=== PATIENT | female | born 1965 | race Caucasian/White ===

== ENCOUNTER 2020-05-26 06:55 | Emergency (ER) | payer BC ==
--- OUTSIDE RECORDS SUMMARY | 2020-05-26 06:58 | XMS REPORT | Continuity of Care Document ---
:1965 Author Organization [facility] t Address [address] [place] [address] Dr. Simmons [address] [place] [id number] Care Team Providers Name Role Phone FINESSE Attending Clinician Unavailable Problems This patient has no known problems. Allergies, Adverse Reactions, Alerts This patient has no known allergies or adverse reactions. Medications This patient has no known medications. Procedures This patient has no known procedures. Encounters Start End Encounter Admission Attending Care Care Encounter Source Date/Time Date/Time Type Type Clinicians Facility Department ID 2020-04-23 2020-04-23 Outpatient [facility] [id number] 00:00:00 00:00:00 [facility] [address] 2019-09-20 2019-09-20 Emergency E [facility] [id number] [facility] 07:29:00 07:29:00 Results This patient has no known results.
[2020-05-26 08:32] LABS: Absolute Lymphocytes (CBC) 2.9 K/uL (0.7-4.9); Basophils % 0.7 % (0-1.3); Hematocrit 37.9 % (36.0-45.0); Lymphocytes % 35.4 % (15.3-44.8); MPV 7.8 fL (7.6-11.3)
--- NOTE | 2020-05-26 09:09 | RAD REPORT ---
EXAM DESCRIPTION: RAD - Chest Single View - 05/26/2020 8:21 am CLINICAL HISTORY: Chest pain;Palpitations Chest pain. COMPARISON: No comparisons FINDINGS: Portable technique limits examination quality. The lungs are grossly clear. The heart is normal in size. No displaced fractures. IMPRESSION: No acute intrathoracic process suspected.
[2020-05-26 10:47] LABS: BUN Blood Urea Nitrogen 12 mg/dL (7-18); Bicarbonate 28 mmol/L (21-32); Glucose Level 94 mg/dL (74-106); Magnesium 1.9 mg/dL (1.8-2.4); NT PRO-BNP 8 pg/mL (<125); Potassium 4.2 mmol/L (3.5-5.1); Sodium Level 140 mmol/L (136-145); Troponin (Emerg Dept Use Only) < 0.02 ng/mL (0.0-0.045)
--- NOTE | 2020-05-26 10:59 | ER ---
Nurse's Notes [facility] Name: Jody Carrillo Age: 54 yrs Sex: Female : 1965 Arrival Date: 05/26/2020 Time: 06:57 Bed 15 Private MD: Diagnosis: Palpitations;Chest pain, unspecified Presentation: 05/26 07:20 Chief complaint: Patient states: "I've had chest pains for a while and they come and go aa5 and I don't know if it's anxiety". Pt also states "I am supposed to use a heart monitor from [facility] but I haven't gotten to it". Pt denies any other symptoms. Coronavirus screen: At this time, the client does not indicate any symptoms associated with coronavirus-19. 07:20 Method Of Arrival: Ambulatory aa5 07:20 Ebola Screen: No symptoms or risks identified at this time. Initial Sepsis Screen: Does aa5 the patient meet any 2 criteria? No. Patient's initial sepsis screen is negative. Does the patient have a suspected source of infection? No. Patient's initial sepsis screen is negative. Risk Assessment: Do you want to hurt yourself or someone else? Patient reports no desire to harm self or others. Onset of symptoms was 2020. 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 - Social history:: Smoking status: Patient denies any tobacco usage or history of. - Family history:: not pertinent. - Hospitalizations: : No recent hospitalization is reported. Screenin:15 Abuse screen: Denies threats or abuse. Denies injuries from another. Nutritional iw screening: No deficits noted. Tuberculosis screening: No symptoms or risk factors identified. Fall Risk IV access (20 points). Assessment: 08:14 General: Appears in no apparent distress. Behavior is calm, cooperative. Pain: Denies iw pain. Pain does not radiate. Pain: Complains of pain in chest Pain began Is intermittent. Neuro: Level of Consciousness is awake, alert, obeys commands, Oriented to person, place, time, situation, Moves all extremities. Full function. Cardiovascular: Reports chest pain. Respiratory: Respiratory effort is even, unlabored. Derm: Skin is intact, is healthy with good turgor. Musculoskeletal: Range of motion: intact in all extremities. 10:06 Reassessment: Patient appears in no apparent distress at this time. Patient and/or ca1 family updated on plan of care and expected duration. Pain level reassessed. Patient is alert, oriented x 3, equal unlabored respirations, skin warm/dry/pink. 10:54 Reassessment: Patient appears in no apparent distress at this time. Patient and/or ca1 family updated on plan of care and expected duration. Pain level reassessed. Patient is alert, oriented x 3, equal unlabored respirations, skin warm/dry/pink. Vital Signs: 07:20 BP 134 / 84; Pulse 86; Resp 16 S; Temp 97.8(O); Pulse Ox 100% on R/A; Weight 65.77 kg aa5 (R); Height 5 ft. 1 in. (154.94 cm) (R); Pain 0/10; 10:06 BP 162 / 84; Pulse 70; Resp 16 S; Pulse Ox 99% on R/A; ca1 10:54 BP 162 / 56; Pulse 70; Resp 18 S; Pulse Ox 100% on R/A; ca1 07:20 Body Mass Index 27.40 (65.77 kg, 154.94 cm) aa5 ED Course: 06:57 Patient arrived in ED. am4 07:25 Arm band placed on Patient placed in waiting room. EKG completed in triage. Results aa5 shown to MD. 07:33 Triage completed. aa5 07:48 Omi Blevins MD is Attending Physician. rn 08:13 Lena Adam RN is Primary Nurse. iw 08:15 No provider procedures requiring assistance completed. Initial lab(s) drawn, by me, iw sent to lab. Inserted saline lock: 20 gauge in right antecubital area, using aseptic technique. Blood collected. Patient maintains SpO2 saturation greater than 95% on room air. 08:21 XRAY Chest (1 view) In Process Unspecified. EDMS 10:06 Patient has correct armband on for positive identification. Bed in low position. Call ca1 light in reach. Side rails up X 1. ethics instructor on. Pulse ox on. NIBP on. 11:06 IV discontinued, intact, bleeding controlled, No redness/swelling at site. Pressure ca1 dressing applied. Administered Medications: No medications were administered Outcome: 10:58 Discharge ordered by . rn 11: Discharged to home ambulatory. ca1 11: Condition: stable 11: Discharge instructions given to patient, Instructed on discharge instructions, follow up and referral plans. Demonstrated understanding of instructions, follow-up care. 11:06 Patient left the ED. ca1 Signatures: Dispatcher [employer] EDLena Cruz, Omi Madison RN, MD MD rn Calderon, Audri, RN RN aa5 Salma Martinez RN RN Noreen Real
--- NOTE | 2020-05-26 10:59 | EDPHYS ---
Physician Documentation [facility] Name: Jody Carrillo Age: 54 yrs Sex: Female : 1965 Arrival Date: 05/26/2020 Time: 06:57 Bed 15 Private MD: ED Physician Omi Blevins HPI: 05/26 08:01 This 54 yrs old Female presents to ER via Ambulatory with complaints of Chest rn Pain. 08:01 This 54 yrs old Female presents to ER via Ambulatory with complaints of Chest rn Pain, palpitations. 08:01 The patient or guardian reports chest pain that is located primarily in the anterior rn chest wall, left. Onset: this morning. The pain radiates to left neck. Associated signs and symptoms: Pertinent positives: palpitations, Pertinent negatives: abdominal pain, cough, diaphoresis, dizziness, headache, shortness of breath, syncope, vomiting. The chest pain is described as aching. Duration: The patient or guardian reports multiple episodes, that are intermittent. Modifying factors: The symptoms are alleviated by nothing. the symptoms are aggravated by nothing. Severity of pain: At its worst the pain was very mild in the emergency department the pain has resolved. The patient has experienced similar episodes in the past. Reports months of episodic palpitations and chest pain, negative stress test 1 year ago, told needed holter monitor but hasn't gotten it yet, woke up with heart racing and left sided chest pain. Now resolved. Reports lasts for minutes then goes away. No fever/sob, does not feel ill. . 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 - Social history:: Smoking status: Patient denies any tobacco usage or history of. - Family history:: not pertinent. - Hospitalizations: : No recent hospitalization is reported. ROS: 08:01 Constitutional: Negative for fever, chills, and weight loss, Eyes: Negative for injury, rn pain, redness, and discharge, Neck: Negative for injury, pain, and swelling, Cardiovascular: Negative for edema Respiratory: Negative for shortness of breath, cough, wheezing, and pleuritic chest pain, Abdomen/GI: Negative for abdominal pain, nausea, vomiting, diarrhea, and constipation, Back: Negative for injury and pain, MS/Extremity: Negative for injury and deformity, Skin: Negative for injury, rash, and discoloration, Neuro: Negative for headache, weakness, numbness, tingling, and seizure. 08:04 All other systems are negative. rn Exam: 07:26 ECG was reviewed by the Attending Physician. rn 08:01 Constitutional: This is a well developed, well nourished patient who is awake, alert, rn and in no acute distress. Head/Face: Normocephalic, atraumatic. Eyes: Pupils equal round and reactive to light, extra-ocular motions intact. Lids and lashes normal. Conjunctiva and sclera are non-icteric and not injected. Cornea within normal limits. Periorbital areas with no swelling, redness, or edema. Neck: Trachea midline, no thyromegaly or masses palpated, and no cervical lymphadenopathy. Supple, full range of motion without nuchal rigidity, or vertebral point tenderness. No Meningismus. Cardiovascular: Regular rate and rhythm. No pulse deficits. Respiratory: No increased work of breathing, no retractions or nasal flaring. Abdomen/GI: soft, non-tender Skin: Warm, dry MS/ Extremity: Pulses equal, no cyanosis. Neurovascular intact. Full, normal range of motion. Equal circumference. Neuro: Awake and alert, GCS 15 Vital Signs: 07:20 BP 134 / 84; Pulse 86; Resp 16 S; Temp 97.8(O); Pulse Ox 100% on R/A; Weight 65.77 kg aa5 (R); Height 5 ft. 1 in. (154.94 cm) (R); Pain 0/10; 10:06 BP 162 / 84; Pulse 70; Resp 16 S; Pulse Ox 99% on R/A; ca1 10:54 BP 162 / 56; Pulse 70; Resp 18 S; Pulse Ox 100% on R/A; ca1 07:20 Body Mass Index 27.40 (65.77 kg, 154.94 cm) aa5 MDM: 07:48 Patient medically screened. rn 10:55 Differential diagnosis: acute pericarditis, anxiety, coronary artery disease rn costochondritis, esophagitis, pericarditis, pleurisy, pneumothorax, arrhythmia. Data reviewed: vital signs, nurses notes, lab test result(s), EKG, radiologic studies, plain films, and as a result, I will discharge patient. Counseling: I had a detailed discussion with the patient and/or guardian regarding: the historical points, exam findings, and any diagnostic results supporting the discharge/admit diagnosis, lab results, radiology results, the need for outpatient follow up, to return to the emergency department if symptoms worsen or persist or if there are any questions or concerns that arise at home. Response to treatment: the patient's symptoms have resolved after treatment, and as a result, I will discharge patient. Special discussion: I discussed with the patient/guardian in detail that at this point there is no indication for admission to the hospital. It is understood, however, that if the symptoms persist or worsen the patient needs to return immediately for re-evaluation. Based on the history and exam findings, there is no indication for further emergent testing or inpatient evaluation. I discussed with the patient/guardian the need to see the clinical care leader for further evaluation of the symptoms. ED course: Pt symptoms have resolved, no acute findings in bloodwork, no arrythmia on monitor or ecg, recommend cardiology f/u for holter and return precautions. neg stress 1 year ago.. 05/26 08:00 Order name: Basic Metabolic Panel rn 05/26 08:00 Order name: CBC with Diff rn 05/26 08:00 Order name: Magnesium rn 05/26 08:00 Order name: NT PRO-BNP rn 05/26 08:00 Order name: Troponin (emerg Dept Use Only) rn 05/26 08:00 Order name: TSH rn 05/26 08:00 Order name: XRAY Chest (1 view); Complete Time: 09:10 rn 05/26 08:00 Order name: T4 Free; Complete Time: 10:49 rn 05/26 08:01 Order name: Basic Metabolic Panel; Complete Time: 10:49 EDMS 05/26 08:01 Order name: CBC with Automated Diff; Complete Time: 08:37 EDMS 05/26 08:01 Order name: Magnesium; Complete Time: 10:49 EDMS 05/26 08:01 Order name: NT PRO-BNP; Complete Time: 10:49 EDMS 05/26 08:01 Order name: Troponin (Emerg Dept Use Only); Complete Time: 10:49 EDKY 05/26 08:01 Order name: Thyroid Stimulating Hormone; Complete Time: : [facility] 05/26 08:00 Order name: EKG; Complete Time: 08: 05/26 08:00 Order name: Cardiac monitoring; Complete Time: 08: rn 05/26 08:00 Order name: EKG - Nurse/Tech; Complete Time: : rn 05/26 08:00 Order name: IV Saline Lock; Complete Time: 08: rn 05/26 08:00 Order name: Labs collected and sent; Complete Time: : rn 05/26 08:00 Order name: O2 Per Protocol; Complete Time: rn 05/26 08:00 Order name: O2 Sat Monitoring; Complete Time: : rn EC:26 Rate is 86 beats/min. Rhythm is regular. QRS [place] is Normal. [place] interval is normal. QRS rn interval is normal. QT interval is normal. No Q waves. T waves are Normal. No ST changes noted. Clinical impression: NSR, Low voltage, no ischemia. Interpreted by me. Reviewed by me. Administered Medications: No medications were administered Disposition: 05/26/20 10:58 Discharged to Home. Impression: Palpitations, Chest pain, unspecified. - Condition is Stable. - Discharge Instructions: Nonspecific Chest Pain, Palpitations. - Medication Reconciliation Form, Thank You Letter, Antibiotic Education, Prescription Opioid Use form. - Follow up: Private Physician; When: As needed; Reason: Recheck today's complaints, Re-evaluation by your physician. - Problem is an ongoing problem. - Symptoms have improved. Signatures: Dispatcher [employer] EDMS Omi Blevins MD MD rn Calderon, Audri RN RN aa5 Salma Martinez RN RN ca1 Corrections: (The following items were deleted from the chart) 08:04 08:01 Constitutional: Negative for fever, chills, and weight loss, Eyes: Negative for rn injury, pain, redness, and discharge, Neck: Negative for injury, pain, and swelling, Cardiovascular: Negative for edema Respiratory: Negative for shortness of breath, cough, wheezing, and pleuritic chest pain, Abdomen/GI: Negative for abdominal pain, nausea, vomiting, diarrhea, and constipation, Back: Negative for injury and pain, MS/Extremity: Negative for injury and deformity, Skin: Negative for injury, rash, and discoloration, Neuro: Negative for headache, weakness, numbness, tingling, and seizure, rn 11:06 10:58 05/26/2020 10:58 Discharged to Home. Impression: Palpitations; Chest pain, ca1 unspecified. Condition is Stable. Forms are Medication Reconciliation Form, Thank You Letter, Antibiotic Education, Prescription Opioid Use. Follow up: Private Physician; When: As needed; Reason: Recheck today's complaints, Re-evaluation by your physician. Problem is an ongoing problem. Symptoms have improved. rn
[2020-05-26 20:36] VITALS: TEMP 97.8
[2020-05-26 20:39] VITALS: BP 162/56; O2SAT 100
--- NOTE | 2020-05-27 05:14 | EKG ---
Test Date: 2020-05-26 Test Time: 07:20:32 Outlet Manager: KRISS MEASUREMENT RESULTS: Intervals: Rate: 86 NC: 146 QRSD: 62 QT: 354 QTc: 423 Clements: P: 45 NC: 146 QRS: 19 T: 52 INTERPRETIVE STATEMENTS: Normal sinus rhythm Low voltage QRS Septal infarct, age undetermined Abnormal ECG No previous ECG available for comparison Electronically Signed On 05-27-20 05:11:27 PREMIUM NOTE INTEREST CALCULATOR CLERK by Apollo Mac
== END 2020-05-26 11:06 | disposition home or self-care (01) ==
LOC: ER 06:55
DX: R07.9 Chest pain, unspecified (principal); R00.2 Palpitations
CPT/HCPCS: 36415; 71045; 80048; 83735; 83880; 84439; 84443; 84484; 85025; 93005; 99285

== ENCOUNTER 2020-06-25 17:39 | Emergency (ER) | payer BC ==
--- OUTSIDE RECORDS SUMMARY | 2020-06-25 17:42 | XMS REPORT | Continuity of Care Document ---
:1965 Author Organization [facility] t Address [address] [place] [address] Care Team Providers Name Role Phone Zach JIMENEZ L. Primary Care Physician Arturo Macdonald Attending Clinician [phone] Zahc JIMENEZ L. Attending Clinician Payers Payer Name Policy Type Policy Effective Date Expiration Date Sour ce Number BCBSBCBS CHOICE [id number] 2019 [facility] PPO/FEDERAL 00:00:00 [facility] EMPL [id number] 2019-[facility] tPPO Problems This patient has no known problems. Allergies, Adverse Reactions, Alerts Allergy Allergy Status Severity Reaction(s) Onset Inactive Treating Comm ents Source Name Type Date Date Clinician Penicill DA [facility] U [facility] [place] sulfamet DA [facility] hoxazole [facility] [place] trimetho DA Active U [facility] prim [facility] [place] ciproflo DA Active [facility] xacin [facility] [place] levoflox DA Active U 2020- [facility] acin [facility] [place] Social History Social Habit Start Date Stop Date Quantity Comments Source Sex Ass[birth year] At [birth year] Junior Salas ethodist 00:00:00 00:00:00 Medications This patient has no known medications. Procedures Procedure Date / Time Performed Performing Clinician Sourc e COVID-19 QUALITATIVE PCR 2020-04-23 14:52:00 Tressa Serrano Plan of Care Planned Activity Planned Date Details Comments Source Future Scheduled 2020-10-17 INFLUENZA VACCINE [place] [facility] 00:00:00 [code = INFLUENZA VACCINE] Future Scheduled 2015-06-11 BREAST CANCER [facility] 00:00:00 SCREENING [code = BREAST CANCER SCREENING] Future Scheduled 2015-06-11 COLONOSCOPY SCREENING [place] [facility] 00:00:00 [code = COLONOSCOPY SCREENING] Future Scheduled 2015-06-11 SHINGLES VACCINES [place] [facility] 00:00:00 (#1) [code = SHINGLES VACCINES (#1)] Future Scheduled 1986 Screening for [facility] Test 00:00:00 malignant neoplasm of cervix (procedure) [code = 675731895] Future Scheduled 1983-06-11 Hepatitis C screening [place] [facility] 00:00:00 (procedure) [code = 972031710] Future Scheduled 1981 COVID-19 VACCINE (1) [facility] Test 00:00:00 [code = COVID-19 VACCINE (1)] Encounters Start End Encounter Admission Attending Care Care Encounter Source Date/Time Date/Time Type Type Clinicians Facility Department ID 2020-04-23 2020-04-23 Outpatient ZACH Wai [facility] [id number] [facility] 00:00:00 00:00:00 TRESSA Alvarez [facility] 2019-09-20 2019-09-20 Emergency E [facility] 7500 [facility] 07:29:00 07:29:00 Results Test Description Test Time Test Comments Results Result Comments Source COLON SEGMENT RESEC.NOT TUMOR 2020-06-20 13:02:00 Test Item Value Reference Range Interpretation Comme nts COLON RUN DATE: SEGMENT 06/21/20 [facility] PAGE 1 RUN TIME: 1054 RESEC.NOT Specimen Inquiry RUN USER: INTERFACE TUMOR (test code PATIENT: = COLONR) [facility]IALBERTO [facility] [id number] AGE/SX: 55/ F ROOM: [facility] RE06/14/20REG DR: Clayton Lea MD : 65 BED: A DIS: 06/16/20 STATUS: DIS IN TLOC: SPEC #: [id number] RECD: STATUS: ABHINAV NANCY #: [id number] SHERON: 06/14/20- SUBM DR: Clayton Lea MD ENTERED: 06/15/20307 SP TYPE: COLONR OTHR DR: Margarito Trevizo MD ORDERED: LEVEL V SURGICA CODES: E10188 - COLON, NOS COPIES TO: Clayton Lea MD [id number] [place] [address] Margarito Castaneda MD [address] [place] [address] [phone] PROCEDURES: LEVEL V SURGICA (Incomplete) TISSUES: COLON, NOS - SIGMOID COLON AND UPPER RE CTUM CLINICAL HISTORY 55 year old, diverticulitis (aimee) FINAL DIAGNOSIS Designate d "sigmoid and upper rectum", resection: - 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 The specimen consists of a 21 x 3 cm portion of bowel with attached pericolonic fat. The fat is torn and disrupted. The serosa is casillas-pink with focal areas of disruption. The specimen is opened to reveal casillas-pink mucosa with folds. An area of stricture is identified. A 0.3 cm possible polyp is identified. Multiple divert iculum are identified. Some of the diverticulum are filled with fecal material. Also recei wu in the same container is a 10 x 9 x 3 cm aggregate of fragmented fatty tissue. The tissue is secti oned to reveal a casillas-yellow cut surface with focal pink-red discoloration. Also received in the same container is a 1.5 cm portion of casillas-pink mucosa. Also received in the same container is a 2 .0 cm annular portion of mucosa. [employer] sections are submitted as follows: A1 - possible p olyp, A2 and A3 - diverticula, A4 - area of stricture, A5 - area of disruption, A6 - fatty tissu e with areas of discoloration, A7 - 1.5 cm portion of mucosa, A8 - annular portion of mucosa. stephen/aimee 06/15/20 MICROSCOPIC DESCRIPTION The specimen consists of a segment of colorectum. Numerous div erticula are present, some of which extend through the muscularis propria into the perirectal and pe ricolonic adipose tissue. Focal hyperplastic changes are present. An annular segment of mucosa and a separate fragment of mucosa is present which have no pathologic alterations. No atypia, dysplasia, granulomas o r malignancy is identified. pkg/wpd Signed Helena Linder 06/20/20 1302 END OF REPORT CHEMISTRY 7 [id number] 05:05:00 Test Item Value Reference Range Interpretation Comments SODIUM (test code = NA) 145 mEq/L 135-145 N POTASSIUM (test code = K) 3.5 mEq/L 3.5-5.0 N CHLORIDE (test code = CL) 108 mEq/L 100-115 N CARBON DIOXIDE (test code = CO2) 29 mEq/L 22-31 N ANION GAP (test code = GAP) 11.30 10-20 N GLUCOSE (test code = GLU) 105 mg/dL 65-110 N BLOOD UREA NITROGEN (test code = 4 mg/dL 7-18 L BUN) GLOMERULAR FILTRATION RATE (test 87 ml/min >60 N code = GFR) CREATININE (test code = CREAT) 0.7 mg/dL 0.5-1.0 N CALCIUM (test code = CA) 8.3 mg/dL 8.4-10.2 L CBC W/AUTO [id number] 04:55:00 Test Item Value Reference Range Interpretation Comments WHITE BLOOD CELL (test code = WBC) 14.3 K/mm3 6.5-12.3 H RED BLOOD CELL (test code = RBC) 3.59 M/mm3 3.51-4.69 N HEMOGLOBIN (test code = HGB) 10.9 g/dL 10.1-13.8 N HEMATOCRIT (test code = HCT) 34.6 % 32.5-41.8 N MEAN CELL VOLUME (test code = MCV) 96.4 fL 84.6-96.6 N MEAN CELL HGB (test code = MCH) 30.4 pg 27.3-33.9 N MEAN CELL HGB CONCETRATION (test 31.5 gm/dL 32.0-34.2 L code = MCHC) RED CELL DISTRIBUTION WIDTH (test 13.1 % 12.2-16.3 N code = RDW) PLATELET COUNT (test code = PLT) 207 K/mm3 134-363 N MEAN PLATELET VOLUME (test code = 9.6 fL 9.2-12.7 N MPV) NEUTROPHIL % (test code = NT%) 75.5 % 57.9-77.3 N LYMPHOCYTE % (test code = LY%) 18.6 % 14.5-29.7 N MONOCYTE % (test code = MO%) 4.7 % 3.6-10.2 N EOSINOPHIL % (test code = EO%) 0.2 % 0.0-3.0 N BASOPHIL % (test code = BA%) 0.2 % 0.1-0.9 N NEUTROPHIL # (test code = NT#) 10.8 K/mm3 LYMPHOCYTE # (test code = LY#) 2.7 K/mm3 MONOCYTE # (test code = MO#) 0.7 K/mm3 EOSINOPHIL # (test code = EO#) 0.03 K/mm3 BASOPHIL # (test code = BA#) 0.0 K/mm3 RBC MORPHOLOGY REQUIRED (test code NORMAL NORMAL = RBCM) PLATELET MORPHOLOGY REQUIRED (test NORMAL NORMAL code = PLTMR) CHEMISTRY 7 [id number] 06:01:00 Test Item Value Reference Range Interpretation Comments SODIUM (test code = NA) 139 mEq/L 135-145 N POTASSIUM (test code = K) 3.8 mEq/L 3.5-5.0 N CHLORIDE (test code = CL) 103 mEq/L 100-115 N CARBON DIOXIDE (test code = CO2) 26 mEq/L 22-31 N ANION GAP (test code = GAP) 14.20 10-20 N GLUCOSE (test code = GLU) 130 mg/dL 65-110 H BLOOD UREA NITROGEN (test code = 8 mg/dL 7-18 N BUN) GLOMERULAR FILTRATION RATE (test 74 ml/min >60 N code = GFR) CREATININE (test code = CREAT) 0.8 mg/dL 0.5-1.0 N CALCIUM (test code = CA) 8.4 mg/dL 8.4-10.2 N CBC W/AUTO [id number] 05:45:00 Test Item Value Reference Range Interpretation Comments WHITE BLOOD CELL (test code = WBC) 19.7 K/mm3 6.5-12.3 H RED BLOOD CELL (test code = RBC) 3.88 M/mm3 3.51-4.69 N HEMOGLOBIN (test code = HGB) 11.8 g/dL 10.1-13.8 N HEMATOCRIT (test code = HCT) 36.7 % 32.5-41.8 N MEAN CELL VOLUME (test code = MCV) 94.6 fL 84.6-96.6 N MEAN CELL HGB (test code = MCH) 30.4 pg 27.3-33.9 N MEAN CELL HGB CONCETRATION (test 32.2 gm/dL 32.0-34.2 N code = MCHC) RED CELL DISTRIBUTION WIDTH (test 12.9 % 12.2-16.3 N code = RDW) PLATELET COUNT (test code = PLT) 253 K/mm3 134-363 N MEAN PLATELET VOLUME (test code = 10.0 fL 9.2-12.7 N MPV) NEUTROPHIL % (test code = NT%) 87.0 % 57.9-77.3 H LYMPHOCYTE % (test code = LY%) 8.5 % 14.5-29.7 L MONOCYTE % (test code = MO%) 3.7 % 3.6-10.2 N EOSINOPHIL % (test code = EO%) 0.0 % 0.0-3.0 N BASOPHIL % (test code = BA%) 0.1 % 0.1-0.9 N NEUTROPHIL # (test code = NT#) 17.1 K/mm3 LYMPHOCYTE # (test code = LY#) 1.7 K/mm3 MONOCYTE # (test code = MO#) 0.7 K/mm3 EOSINOPHIL # (test code = EO#) 0 K/mm3 BASOPHIL # (test code = BA#) 0.0 K/mm3 RBC MORPHOLOGY REQUIRED (test code NORMAL NORMAL = RBCM) PLATELET MORPHOLOGY REQUIRED (test NORMAL NORMAL code = PLTMR) COVID 19 Asymptomatic IH [id number] 22:26:00 Test Item Value Reference Range Interpretation Comments COVID 19 NEGATIVE NEGATIVE This test has b een Asymptomatic IH AG authorize d only for the (test code = detection ofpro teins from COVNONPUIAG) SARS-CoV-2, not for any other viruses orpathogens. N egative results should be treated as presumptive andconfirmed wi th a molecular assay , if necessary for patientmanageme nt. Negative result s do not rule out COVID- 19 andshould not b e used as the sole basis for treatment orpat ient management deci sions, including infec tion controldecision s. Negative result s should be considered i n thecontext of a patient's recent exposure s, history and thepresence of clinical signs and symptoms consis tent withCOVID-19. T his test has not been FD A cleared or approved; th e test hasbeen authori zed by FDA under an Emerge ncy Use Authorization(E UA) for use by laborato shanique certified under the CLIA thatmeet the re quirements to perform mode rate, high or waivedcomple xity tests. This nikita t is authorized for use at thePoint of Car e (POC), i.e., in patien t care settingsoperati ng under a CLIA Certificat e of Waiver, Certifi sabine ofCompliance, o r Certificate of Accreditation. This test is only authori zed for the duration of thedeclaration that circumstances e xist justifying theauthorizatio n of emergency use o f in vitro diagnostic test sfor detection and/o r diagnosis of CO VID-19 under Najgdxe55 4(b)(1) of the Act, 21 U.S .C. 360bbb-3(b)(1), unless theauthorizatio n is terminated or r evoked sooner. UR HCG [id number] 17:22:00 Test Item Value Reference Range Interpretation Comments UR HCG QUAL (test NEGATIVE 1. Very di lute urine code = HCGQLU) specimens, as indicated by a lowspecific g ravity, may not contain rep resentative levels ofhCG. 2 . False negative result s may occur when the levels of hCGare below the sensi tivity level of the test. If is still suspec chelsea, a first morningurine sp ecimen should be colle cted 48 hours later and tested. COMPREHENSIVE METABOLIC [id number] 17:11:00 Test Item Value Reference Range Interpretation Comments SODIUM (test code = NA) 141 mEq/L 135-145 N POTASSIUM (test code = K) 4.1 mEq/L 3.5-5.0 N CHLORIDE (test code = CL) 102 mEq/L 100-115 N CARBON DIOXIDE (test code = CO2) 29 mEq/L 22-31 N ANION GAP (test code = GAP) 14.60 10-20 N GLUCOSE (test code = GLU) 91 mg/dL 65-110 N BLOOD UREA NITROGEN (test code = 17 mg/dL 7-18 N BUN) GLOMERULAR FILTRATION RATE (test 104 ml/min >60 N code = GFR) CREATININE (test code = CREAT) 0.6 mg/dL 0.5-1.0 N TOTAL PROTEIN (test code = PROT) 7.2 gm/dL 6.3-8.2 N ALBUMIN (test code = ALB) 4.2 gm/dL 3.4-4.8 N CALCIUM (test code = CA) 9.4 mg/dL 8.4-10.2 N BILIRUBIN TOTAL (test code = BILT) 0.2 mg/dL 0.2-1.0 N SGOT/AST (test code = AST) 15 units/L 15-37 N SGPT/ALT (test code = ALT) 30 units/L 12-78 N ALKALINE PHOSPHATASE TOTAL (test 68 units/L 46-116 N code = ALKP) PROTHROMBIN [id number] 16:59:00 Test Item Value Reference Range Interpretation Comments PROTHROMBIN TIME PATIENT (test code 11.1 secs 10.4-12.4 N = PTP) THROMBOPLASTIN TIME [id number] 16:59:00 Test Item Value Reference Range Interpretation Comments THROMBOPLASTIN TIME PARTIAL (test 35.9 secs 22-38 N code = PTT) CBC W/AUTO [id number] 16:44:00 Test Item Value Reference Range Interpretation Comments WHITE BLOOD CELL (test code = WBC) 9.4 K/mm3 6.5-12.3 N RED BLOOD CELL (test code = RBC) 4.37 M/mm3 3.51-4.69 N HEMOGLOBIN (test code = HGB) 13.4 g/dL 10.1-13.8 N HEMATOCRIT (test code = HCT) 41.1 % 32.5-41.8 N MEAN CELL VOLUME (test code = MCV) 94.1 fL 84.6-96.6 N MEAN CELL HGB (test code = MCH) 30.7 pg 27.3-33.9 N MEAN CELL HGB CONCETRATION (test 32.6 gm/dL 32.0-34.2 N code = MCHC) RED CELL DISTRIBUTION WIDTH (test 12.9 % 12.2-16.3 N code = RDW) PLATELET COUNT (test code = PLT) 289 K/mm3 134-363 N MEAN PLATELET VOLUME (test code = 10.2 fL 9.2-12.7 N MPV) NEUTROPHIL % (test code = NT%) 51.2 % 57.9-77.3 L LYMPHOCYTE % (test code = LY%) 39.4 % 14.5-29.7 H MONOCYTE % (test code = MO%) 6.9 % 3.6-10.2 N EOSINOPHIL % (test code = EO%) 2.0 % 0.0-3.0 N BASOPHIL % (test code = BA%) 0.3 % 0.1-0.9 N NEUTROPHIL # (test code = NT#) 4.8 K/mm3 LYMPHOCYTE # (test code = LY#) 3.7 K/mm3 MONOCYTE # (test code = MO#) 0.7 K/mm3 EOSINOPHIL # (test code = EO#) 0.19 K/mm3 BASOPHIL # (test code = BA#) 0.0 K/mm3 RBC MORPHOLOGY REQUIRED (test code NORMAL NORMAL = RBCM) PLATELET MORPHOLOGY REQUIRED (test NORMAL NORMAL code = PLTMR) COVID-19 qualitative [id number] 23:12:45 Test Item Value Reference Range Interpretation Comments Interpretation (test Negative results do code = 9632955) not preclude 2019-nCoV infection and should not be used as the sole basis for treatment or other patient management decisions. Negative results must be combined with clinical observations, patient history, and epidemiological information. COVID-19 qualitative Not-Detected Not-Detected PCR result (test code = 78024-8) COVID-19 qualitative See link below for C ase Number: PCR (test code = PDF Lab Report [id number]) Junior Glover
[2020-06-25 18:28] LABS: Urine Blood Negative (Negative); Urine Glucose Negative (Negative); Urine Protein Negative (Negative); Urine Specific Gravity 1.025 (1.005-1.030); Urine pH 5.5 (5.0-7.0)
[2020-06-25 20:27] LABS: SARS-COV-2 RT PCR NEGATIVE (NEGATIVE)
[2020-06-25 20:54] LABS: Urine Blood Negative (Negative); Urine Glucose Negative (Negative); Urine Protein Negative (Negative); Urine Specific Gravity 1.025 (1.005-1.030)
[2020-06-25 21:05] LABS: Absolute Lymphocytes (CBC) 3.2 K/uL (0.7-4.9); Basophils % 0.4 % (0-1.3); Hematocrit 36.1 % (36.0-45.0); Lymphocytes % 32.8 % (15.3-44.8); RBC Red Blood Cell Count 4.09 M/uL (3.86-4.86)
[2020-06-25 21:19] LABS: BUN Blood Urea Nitrogen 10 mg/dL (7-18); Bicarbonate 31 mmol/L (21-32); Glucose Level 90 mg/dL (74-106); Potassium 3.9 mmol/L (3.5-5.1); Sodium Level 140 mmol/L (136-145)
--- NOTE | 2020-06-25 21:36 | RAD REPORT ---
EXAM DESCRIPTION: CTAbdomen Pelvis W Contrast - 06/25/2020 9:14 pm CLINICAL HISTORY: Abdominal pain. ABD PAIN COMPARISON: CT ABD PELVIS W CONTRAST dated 03/08/2013 TECHNIQUE: Biphasic CT imaging of the abdomen and pelvis was performed with 100 ml non-ionic IV cont rast. All CT scans are performed using dose optimization technique as appropriate and may include automated exposure control or mA/KV adjustment according to patient size. FINDINGS: The lung bases are clear. The liver, spleen, pancreas, adrenal glands and kidneys are within normal limits. No bowel obstruction, free air, free fluid or abscess. 5.0 x 4.0 cm cavity is seen adjacent to sigmoi d colon anastomosis. There is a small amount of fluid seen within the cavity. Mild inflammation is se en in the surrounding fat. The appendix is normal. No evidence of significant lymphadenopathy. No suspicious bony findings. IMPRESSION: Irregularly-shaped 5 x 4 cm cavity is seen adjacent to the sigmoid colon anastomosis. Th is suggests abscess or contained anastomotic leakage. The fat surrounding this collection is mildly i nflamed. Colonoscopy followup may be value for direct visualization of the region.
[2020-06-25] MEDS ORDERED: NA CHLORIDE 0.9% 1,000 ML ONE (23:12)
[2020-06-25] MEDS ORDERED: ERTAPENEM SODIUM 1 GM VIAL ONE (23:38)
[2020-06-25] MEDS ORDERED: NA CHLORIDE 0.9% 100 ML ONE (23:44)
--- NOTE | 2020-06-26 00:25 | EDPHYS ---
Physician Documentation [facility] Name: Jody Carrillo Age: 55 yrs Sex: Female : 1965 Arrival Date: 06/25/2020 Time: 17:40 Bed 19 Private MD: ED Physician Morales Ortega HPI: 06/25 19:52 This 55 yrs old Female presents to ER via Ambulatory with complaints of kb Fever, Abdominal Pain. 19:52 The patient reports fever, that was measured at 100 degrees Fahrenheit, with an kb emergency department temperature of 97.6 degrees Fahrenheit. Onset: The symptoms/episode began/occurred 12 day(s) ago. Modifying factors: there are no obvious modifying factors. Associated signs and symptoms: Pertinent positives: chills, myalgias, sore throat. Severity of symptoms: At their worst the symptoms were moderate in the emergency department the symptoms have improved moderately. The patient has not experienced similar symptoms in the past. The patient has been recently seen by a physician:. Pt reports she had a colon resection on June 13, 2020 due to diverticulitis by Dr Lea at [facility]. States she has had a fever since the surgery (12 days). Reports bodyaches, chills and malaise when she has a fever, but asymptomatic when the fever breaks. Has been taking tylenol and motrin for fever/pain. States she has started to develop a sore throat. Reports soreness to abd, but no pain. . Historical: - Allergies: 18:05 Bactrim; ss 18:05 Cipro; ss 18:05 Levaquin; ss 18:05 PENICILLINS; ss - PMHx: 18:05 diverticulosis; ss - PSHx: 18:05 colon resection; ss - Immunization history:: Adult Immunizations up to date. - Social history:: Smoking status: Patient denies any tobacco usage or history of. ROS: 20:40 Eyes: Negative for injury, pain, redness, and discharge, ENT: Negative for injury, mh7 pain, and discharge, Neck: Negative for injury, pain, and swelling, Cardiovascular: Negative for chest pain, palpitations, and edema, Respiratory: Negative for shortness of breath, cough, wheezing, and pleuritic chest pain. 20:40 Back: Negative for injury and pain, : Negative for injury, bleeding, discharge, and swelling, MS/Extremity: Negative for injury and deformity, Skin: Negative for injury, rash, and discoloration, Neuro: Negative for headache, weakness, numbness, tingling, and seizure, Psych: Negative for depression, anxiety, suicide ideation, homicidal ideation, and hallucinations, Allergy/Immunology: Negative for hives, rash, and allergies, Endocrine: Negative for neck swelling, polydipsia, polyuria, polyphagia, and marked weight changes, Hematologic/Lymphatic: Negative for swollen nodes, abnormal bleeding, and unusual bruising. 20:40 Abdomen/GI: Negative for nausea and vomiting, nausea, vomiting, and diarrhea, nausea, vomiting, diarrhea, constipation, abdominal distension, anorexia, dysphagia, hematemesis, black/tarry stool, rectal pain, rectal bleeding, bowel incontinence, flatulence. Exam: 20:40 Constitutional: This is a well developed, well nourished patient who is awake, alert, mh7 and in no acute distress. Head/Face: Normocephalic, atraumatic. Eyes: Pupils equal round and reactive to light, extra-ocular motions intact. Lids and lashes normal. Conjunctiva and sclera are non-icteric and not injected. Cornea within normal limits. Periorbital areas with no swelling, redness, or edema. ENT: Nares patent. No nasal discharge, no septal abnormalities noted. Tympanic membranes are normal and external auditory canals are clear. Oropharynx with no redness, swelling, or masses, exudates, or evidence of obstruction, uvula midline. Mucous membranes moist. Neck: Trachea midline, no thyromegaly or masses palpated, and no cervical lymphadenopathy. Supple, full range of motion without nuchal rigidity, or vertebral point tenderness. No Meningismus. Chest/axilla: Normal chest wall appearance and motion. Nontender with no deformity. No lesions are appreciated. Cardiovascular: Regular rate and rhythm with a normal S1 and S2. No gallops, murmurs, or rubs. Normal PMI, no JVD. No pulse deficits. Respiratory: Lungs have equal breath sounds bilaterally, clear to auscultation and percussion. No rales, rhonchi or wheezes noted. No increased work of breathing, no retractions or nasal flaring. 20:40 Back: No spinal tenderness. No costovertebral tenderness. Full range of motion. Skin: Warm, dry with normal turgor. Normal color with no rashes, no lesions, and no evidence of cellulitis. MS/ Extremity: Pulses equal, no cyanosis. Neurovascular intact. Full, normal range of motion. Neuro: Awake and alert, GCS 15, oriented to person, place, time, and situation. Cranial nerves II-XII grossly intact. Motor strength 5/5 in all extremities. Sensory grossly intact. Cerebellar exam normal. Normal gait. Psych: Awake, alert, with orientation to person, place and time. Behavior, mood, and affect are within normal limits. 20:40 Abdomen/GI: Inspection: scar(s), are noted in the epigastric area and suprapubic area, Bowel sounds: normal, in all quadrants, Palpation: abdomen is soft and non-tender, in all quadrants, Rectal exam: the exam is deferred, because of patient request, Indicators: McBurney's point is not tender, Rain's sign is negative, Rovsing's sign is negative, Obturator sign is negative, Psoas sign is negative, Liver: no appreciated palpable abnormalities, Hernia: not appreciated. Vital Signs: 18:03 BP 114 / 84; Pulse 99; Resp 14; Temp 97.6(TE); Pulse Ox 99% on R/A; Weight 64.86 kg; ss Height 5 ft. 1 in. (154.94 cm); Pain 1/10; 20:30 BP 128 / 63; Pulse 88; Resp 16; Pulse Ox 99% ; sf 21:30 BP 125 / 54; Pulse 87; Resp 16; Pulse Ox 100% ; sf 22:30 BP 109 / 69; Pulse 87; Resp 16; Pulse Ox 95% ; sf 23:00 BP 123 / 67; Pulse 81; Resp 16; Pulse Ox 100% ; sf 23:30 BP 128 / 72; Pulse 87; Resp 16; Pulse Ox 100% ; sf 06/26 00:00 BP 129 / 69; Pulse 91; Resp 16; Pulse Ox 99% ; sf 06/25 18:03 Body Mass Index 27.02 (64.86 kg, 154.94 cm) ss MDM: 06/25 18:08 Patient medically screened. kb 19:57 Data reviewed: vital signs, nurses notes. Data interpreted: Pulse oximetry: on room air kb is 99 %. Interpretation: normal. 06/26 00:19 Differential diagnosis: viral Infection, bacterial infection, Post operative infection. mh7 Counseling: I had a detailed discussion with the patient and/or guardian regarding: the historical points, exam findings, and any diagnostic results supporting the discharge/admit diagnosis, lab results, radiology results, the need for outpatient follow up, to return to the emergency department if symptoms worsen or persist or if there are any questions or concerns that arise at home. Response to treatment: the patient's symptoms have resolved after treatment, the patient's blood pressure is in an acceptable range, mental status has returned to baseline, the patient no longer shows bradycardia, the patient is not short of breath, the patient is not tachycardic, the patient's pain is gone, the patient's temperature has normalized. ED course: Discussed with patient's surgeon, Dr. Lea. He also discussed CT abdomen with radiologist. He determined no abscess or surgical anastomosis problem. He wants patient to receive a dose of antibiotics in the ED and follow up with appointment already scheduled on 06/28/20. Patient is agreeable with this plan.. 06/25 18:09 Order name: Flu kb 06/25 18:09 Order name: Strep; Complete Time: 21:48 kb 06/25 18:10 Order name: CBC with Diff; Complete Time: 21:48 kb 06/25 18:10 Order name: Basic Metabolic Panel; Complete Time: 21:48 kb 06/25 18:10 Order name: Blood Culture Adult (2) kb 06/25 18:10 Order name: Lactate; Complete Time: 21:48 kb 06/25 18:10 Order name: Procalcitonin; Complete Time: 22:11 kb 06/25 18:10 Order name: Influenza Screen (A [facility] 06/25 18:28 Order name: Urine Dipstick-Ancillary; Complete Time: 18:38 [facility] 06/25 19:51 Order name: CT Abd/Pelvis - IV Contrast Only; Complete Time: 21:48 kb 06/25 19:58 Order name: Throat Culture [facility] 06/25 20:27 Order name: SARS-COV-2 RT PCR; Complete Time: 21:48 [facility] 06/25 20:54 Order name: Urine Dipstick-Ancillary; Complete Time: 21:48 [facility] 06/25 18:10 Order name: Urine Dipstick-Ancillary (obtain specimen); Complete Time: 21:00 kb 06/25 18:10 Order name: IV Start; Complete Time: 21:00 kb Administered Medications: 06/25 22:56 Drug: NS 0.9% 1000 ml Route: IV; Rate: 1000 ml; Site: right antecubital; 23:34 Follow up: IV Status: Completed infusion; IV Intake: 1000ml sf 23:34 Drug: InvANZ (ertapenem) 1 grams Route: IVPB; Infused Over: 30 mins; Site: right sf antecubital; 06/26 00:10 Follow up: IV Status: Completed infusion; IV Intake: 100ml sf 00:28 Follow up: Response: No adverse reaction sf Disposition: 05:36 Co-signature as Attending Physician, Morales Ortega MD. mh7 Disposition: 06/26/20 00:24 Discharged to Home. Impression: Fever, subjective, Abdominal Pain, Post operative. - Condition is Stable. - Discharge Instructions: Abdominal Pain, Adult, [id number], Fever, Adult, [id number]. - Prescriptions for Flagyl 500 mg Oral Tablet - take 1 tablet by ORAL route every 8 hours for 10 days; 30 tablet. Keflex 500 mg Oral Capsule - take 1 capsule by ORAL route every 8 hours for 10 days; 30 capsule. - Medication Reconciliation Form, Thank You Letter, Antibiotic Education, Prescription Opioid Use form. - Follow up: Private Physician; When: 48 Hours; Reason: Worsening of condition, Recheck today's complaints, Continuance of care, Re-evaluation by your physician. - Problem is an ongoing problem. - Symptoms have improved. Signatures: Dispatcher [employer] [facility] Caron Corbett, VESSEL SLAGMAN-C VESSEL SLAGMAN-Germania Stephen RN RN ss Morales Ortega MD MD 7 Preet Jurado RN RN sf Corrections: (The following items were deleted from the chart) 06/25 19:29 18:10 CORONAVIRUS+ ordered. [facility] 06/26 00:54 00:24 06/26/2020 00:24 Discharged to Home. Impression: Fever, subjective; Abdominal sf Pain, Post operative. Condition is Stable. Forms are Medication Reconciliation Form, Thank You Letter, Antibiotic Education, Prescription Opioid Use. Follow up: Private Physician; When: 48 Hours; Reason: Worsening of condition, Recheck today's complaints, Continuance of care, Re-evaluation by your physician. Problem is an ongoing problem. Symptoms have improved. mh7
--- NOTE | 2020-06-26 00:25 | ER ---
Nurse's Notes [facility] Name: Jody Carrillo Age: 55 yrs Sex: Female : 1965 Arrival Date: 06/25/2020 Time: 17:40 Bed 19 [facility] MD: Diagnosis: Fever, subjective;Abdominal Pain, Post operative Presentation: 06/25 18:03 Chief complaint: Patient states: fever x 12 days. Pt states, "I had a colon resection ss on 06/[address] Kennedy told me to come in to the ED immediately.". Coronavirus screen: Client denies travel out of the [place] in the last 14 days. Ebola Screen: Patient denies exposure to infectious person. Patient denies travel to an Ebola-affected area in the 21 days before illness onset. Initial Sepsis Screen: Does the patient meet any 2 criteria? No. Patient's initial sepsis screen is negative. Does the patient have a suspected source of infection? No. Patient's initial sepsis screen is negative. Risk Assessment: Do you want to hurt yourself or someone else? Patient reports no desire to harm self or others. Onset of symptoms was June 15, 2020. 18:03 Method Of Arrival: Ambulatory ss 18:03 Acuity: ELIEZER 3 ss Historical: - Allergies: 18:05 Bactrim; ss 18:05 Cipro; ss 18:05 Levaquin; ss 18:05 PENICILLINS; ss - PMHx: 18:05 diverticulosis; ss - PSHx: 18:05 colon resection; ss - Immunization history:: Adult Immunizations up to date. - Social history:: Smoking status: Patient denies any tobacco usage or history of. Screenin:20 Abuse screen: Denies threats or abuse. Denies injuries from another. Nutritional sf screening: No deficits noted. Tuberculosis screening: No symptoms or risk factors identified. Never had TB. Possible symptoms: None Risk factors: None. Fall Risk None identified. No fall in past 12 months (0 pts). No secondary diagnosis (0 pts). IV access (20 points). Ambulatory Aid- None/Bed Rest/Nurse Assist (0 pts). Gait- Normal/Bed Rest/Wheelchair (0 pts) Mental Status- Oriented to own ability (0 pts). Total Kam Fall Scale indicates No Risk (0-24 pts). Assessment: 20:20 General: Appears in no apparent distress. comfortable, Behavior is calm, cooperative. sf Pain: Complains of pain in abdomen. Neuro: No deficits noted. Level of Consciousness is awake, alert, Oriented to person, place, time, situation. Cardiovascular: No deficits noted. Patient's skin is warm and dry. Respiratory: No deficits noted. Airway is patent Respiratory effort is even, unlabored, Respiratory pattern is regular, symmetrical. GI: Abdomen is distended, Abdomen is tender to palpation X 4 quads. : No deficits noted. No signs and/or symptoms were reported regarding the genitourinary system. Derm: No signs and/or symptoms reported regarding the dermatologic system. Musculoskeletal: No signs and/or symptoms reported regarding the musculoskeletal system. 21:35 Reassessment: Patient appears in no apparent distress at this time. No changes from sf previously documented assessment. Patient and/or family updated on plan of care and expected duration. Pain level reassessed. Patient is alert, oriented x 3, equal unlabored respirations, skin warm/dry/pink. 22:10 Reassessment: Patient appears in no apparent distress at this time. No changes from sf previously documented assessment. Patient and/or family updated on plan of care and expected duration. Pain level reassessed. Patient is alert, oriented x 3, equal unlabored respirations, skin warm/dry/pink. 23:00 Reassessment: Patient appears in no apparent distress at this time. No changes from sf previously documented assessment. Patient and/or family updated on plan of care and expected duration. Pain level reassessed. Patient is alert, oriented x 3, equal unlabored respirations, skin warm/dry/pink. 06/26 00:30 Reassessment: Patient appears in no apparent distress at this time. No changes from sf previously documented assessment. Patient and/or family updated on plan of care and expected duration. Pain level reassessed. Patient is alert, oriented x 3, equal unlabored respirations, skin warm/dry/pink. Patient is alert/active/playful, equal unlabored respirations, skin warm/dry/pink. Vital Signs: 06/25 18:03 BP 114 / 84; Pulse 99; Resp 14; Temp 97.6(TE); Pulse Ox 99% on R/A; Weight 64.86 kg; ss Height 5 ft. 1 in. (154.94 cm); Pain 03/28; 20:30 BP 128 / 63; Pulse 88; Resp 16; Pulse Ox 99% ; sf 21:30 BP 125 / 54; Pulse 87; Resp 16; Pulse Ox 100% ; sf 22:30 BP 109 / 69; Pulse 87; Resp 16; Pulse Ox 95% ; sf 23:00 BP 123 / 67; Pulse 81; Resp 16; Pulse Ox 100% ; sf 23:30 BP 128 / 72; Pulse 87; Resp 16; Pulse Ox 100% ; sf 06/26 00:00 BP 129 / 69; Pulse 91; Resp 16; Pulse Ox 99% ; sf 06/25 18:03 Body Mass Index 27.02 (64.86 kg, 154.94 cm) ss ED Course: 06/25 17:40 Patient arrived in ED. ds1 18:05 Triage completed. ss 18:05 Arm band placed on right wrist. ss 18:08 aCron Corbett FNP-C is PHCP. kb 18:08 Juancho Mullen MD is Attending Physician. kb 19:30 Urine collected: clean catch specimen, clear, COVID swab sent to lab. Flu and/or RSV sf swab sent to lab. Strep swab sent to lab. 19:52 Morales Ortega MD is Attending Physician. [facility] 19:56 Preet Jurado RN is Primary Nurse. sf 20:20 Patient has correct armband on for positive identification. Placed in gown. Bed in low sf position. Call light in reach. Side rails up X 1. Pulse ox on. NIBP on. Door closed. Noise minimized. Visitors limited. Lights dimmed. Warm blanket given. Verbal reassurance given. 20:30 Initial lab(s) drawn, by me, sent to lab. First set of blood cultures drawn by me. sf Inserted saline lock: 20 gauge in right antecubital area, using aseptic technique. Blood collected. 20:35 Second set of blood cultures drawn by me. sf 21:00 Flu Sent. sf 21:06 CT Abd/Pelvis - IV Contrast Only Sent. sf 21:14 CT Abd/Pelvis - IV Contrast Only In Process Unspecified. EDMS 06/26 00:49 No provider procedures requiring assistance completed. IV discontinued, intact, sf bleeding controlled, No redness/swelling at site. Pressure dressing applied. Administered Medications: 06/25 22:56 Drug: NS 0.9% 1000 ml Route: IV; Rate: 1000 ml; Site: right antecubital; 23:34 Follow up: IV Status: Completed infusion; IV Intake: 1000ml sf 23:34 Drug: InvANZ (ertapenem) 1 grams Route: IVPB; Infused Over: 30 mins; Site: right sf antecubital; 06/26 00:10 Follow up: IV Status: Completed infusion; IV Intake: 100ml sf 00:28 Follow up: Response: No adverse reaction sf Intake: 06/25 23:34 IV: 1000ml; Total: 1000ml. sf 06/26 00:10 IV: 100ml; Total: 1100ml. Outcome: 00:24 Discharge ordered by . Roscoe 00:49 Discharged to home ambulatory, with family. 00:49 Condition: stable 00:49 Discharge instructions given to patient, family, Instructed on discharge instructions, follow up and referral plans. medication usage, Demonstrated understanding of instructions, follow-up care, medications, Prescriptions given X 2. 00:54 Patient left the ED. sf Signatures: Dispatcher [employer] [facility]MS Caron Corbett, OCCUPATIONAL HEALTH NURSE MANAGER-C OCCUPATIONAL HEALTH NURSE MANAGER-Ckb Mervat Rubio ds1 Germania Huffman RN RN Morales Ortega MD MD [facility] Preet Jurado RN RN
[2020-06-26 13:31] VITALS: TEMP 97.6
[2020-06-26 13:41] VITALS: BP 129/69; O2SAT 99
== END 2020-06-26 00:54 | disposition home or self-care (01) ==
LOC: ER 17:39
DX: R50.9 Fever, unspecified (principal); R10.9 Unspecified abdominal pain; G89.18 Other acute postprocedural pain; Z20.822 Contact with and (suspected) exposure to COVID-19
CPT/HCPCS: 96365; 96361; 87040 ×2; 87070; 85025; 80048; 36415; 82565; 87081; 83605; 81003 ×2; 84145; 0240U; 74177; 99284; Q9967; J1335; J7030; U0003